=== PATIENT | male | born 1950 | race Caucasian/White ===

== ENCOUNTER 2017-06-25 08:32 | Emergency (ER) | payer BC ==
[2017-06-25 08:58] VITALS: BP 155/87
[2017-06-25] MEDS ORDERED: Aspirin Low Dose CHEW TAB* 81 MG PO ONE (09:54)
--- NOTE | 2017-06-25 11:32 | UC ---
Josephine Cavazos Nilda, scribed for Charito De Santiago DO on 06/25/17 at 0916 . Abdominal Pain Male HPI - HPI Summary HPI Summary: This patient is a 67 year old M presenting to [facility] accompanied by with a chief complaint of constant severe non-radiating upper epigastric cramping since 02:30 this morning. The patient rates the initial pain 10/10 in severity and current pain 4/10. Symptoms aggravated by nothing and possibly alleviated by flatulence. Patient reports belching, reduced PO intake (a few sips of nael juan), and diaphoresis when pain was severe. Patient denies vomiting, body aches, fever, chills, SOB, rash, CP, pain in neck, jaw, and arm, and ear pain. He states last BM was yesterday morning and has not had BM yet today. Pt notes he took oxycodone for chronic back pain yesterday which has tendency to constipate him. He admits about 15-20 ETOH drinks per week, but states he can have a period of up to 4-5 days of no drinking and does not experience withdrawal symptoms. - History of Current Complaint Chief Complaint: UCAbdominalPain Stated Complaint: ABDOMINAL PAIN Time Seen by Provider: 06/25/17 08:57 Hx Obtained From: Patient Onset/Duration: Sudden Onset, Lasting Hours, Still Present Timing: Constant Severity Initially: Severe Severity Currently: Moderate Pain Intensity: 4 Pain Scale Used: 0-10 Numeric Location: Epigastric Radiates: No Character: Aching Aggravating Factor(s): Nothing Alleviating Factor(s): Other - flatulence Associated Signs And Symptoms: Positive: Other - belching, reduced PO intake (a few sips of nael juan), and diaphoresis. Patient denies vomiting, body aches, fever, chills, SOB, rash, CP, pain in neck, jaw, and arm, and ear pain. - Allergies/Home Medications Allergies/Adverse Reactions: Allergies Allergy/AdvReac Type Severity Reaction Status Date / Time No Known Allergies Allergy Verified 06/25/17 08:48 PMH/Surg Hx/FS Hx/Imm Hx Cardiovascular History: Hypertension - Surgical History Surgical History: Yes Surgery Procedure, Year, and Place: left knee surgery- TOTAL REPLACEMENT;. right ACL reconstruction. L5-S1 Laminectomy -2007. right total knee replacement 2017 - Family History Known Family History: Positive: Cardiac Disease, Hypertension - Social History Lives: With Family Alcohol Use: Weekly Alcohol Amount: 15-20 drinks per week Substance Use Type: None Substance Use Comment - Amount & Last Used: oxycodone Smoking Status (MU): Current Some Day Smoker Type: Cigars Amount Used/How Often: 1 per day Have You Smoked in the Last Year: Yes When Did the Patient Quit Smoking/Using Tobacco: 20 years ago Household Exposure Type: Cigarettes Cessation Counseling: Patient Advised to Stop Review of Systems Constitutional: Other - negative fever, chills Skin: Other - diaphoresis; negative rash ENT: Other - negative ear pain Respiratory: Other - negative SOB Cardiovascular: Other - negative CP Gastrointestinal: Abdominal Pain - epigastric, Other - belching, reduced PO intake; negative vomiting Musculoskeletal: Other: - negative body ache, pain in neck, jaw, and arm All Other Systems Reviewed And Are Negative: Yes Physical Exam Triage Information Reviewed: Yes Appearance: Well-Appearing, No Pain Distress, Well-Nourished Vital Signs: Initial Vital Signs Temp 97.3 F 06/25/17 08:49 Pulse 54 06/25/17 08:49 Resp 16 06/25/17 08:49 BP 155/87 06/25/17 08:49 Pulse Ox 96 06/25/17 08:49 Vital Signs Reviewed: Yes Eyes: Positive: Conjunctiva Clear. Negative: Discharge ENT: Positive: Hearing grossly normal. Negative: Muffled voice, Hoarse voice Neck exam: Normal Neck: Positive: Supple Respiratory: Positive: Lungs clear, Normal breath sounds, No respiratory distress, No accessory muscle use Cardiovascular: Positive: RRR, No Murmur Abdomen Description: Positive: Soft, Other: - Mildly tender in epigastric area, somewhat obese, mild umbilical hernia evident. Negative: Distended, Guarding Bowel Sounds: Positive: Present Musculoskeletal Exam: Normal Neurological: Positive: Alert, Muscle Tone Normal Psychological: Positive: Age Appropriate Behavior Skin Exam: Normal Skin: Positive: Other - Warm, Dry, Normal color Diagnostics - EKG Cardiac Rate: Bradycardia Cardiac Rhythm: Sinus: Normal - [address] Segment: Normal Re-Evaluation - Re-Evaluation First Eval Re-Evaluation Time: 09:54 Comment: Reviewed EKG and plan to transfer to ED. Pt is agreeable to transfer. Abd Pain Male Course/Dx - Course Course Of Treatment: This patient is a 67 year old M presenting to [facility] by with a chief complaint of constant severe non-radiating upper epigastric cramping since 02:30 this morning. The patient rates the initial pain 10/10 in severity and current pain 4/10. Symptoms aggravated by nothing and alleviated by flatulence. Patient reports belching, reduced PO intake (a few sips of nael juan), and diaphoresis. Patient denies vomiting, body aches, fever, chills, SOB, rash, CP, pain in neck, jaw, and arm, and ear pain. He states last BM was yesterday morning and has not had BM yet today. Pt notes he took oxycodone for chronic back pain yesterday which has tendency to constipate him. He admits about 15 ETOH drinks per week, but states he can have a period of up to 4-5 days of no drinking and does not experience withdrawal symptoms. An EKG reveals sinus bradycardia, 47 bpm, and no ST changes. Patient will be transferred to [facility] for further evaluation with Dx of epigastric pain and bradycardia. The patient is agreeable with this plan. Medications reviewed. Allergies reviewed. High blood pressure noted. - Differential Dx/Clinical Impression Differential Diagnosis/HQI/PQRI: ACS, AMI, Constipation, Pancreatitis Provider Diagnoses: epigastric pain, bradycardia Discharge - Discharge Plan Condition: Stable Disposition: [facility] Discharge Disposition Comment: [facility] Referrals: Dav Bolaños MD [Primary Care Provider] - The documentation as recorded by the Josephine barros Nilda accurately reflects the service I personally performed and the decisions made by , Charito De Santiago DO.
== END 2017-06-25 10:21 | disposition short-term general hospital (02) ==
LOC: UCEAST 08:32
DX: R10.13 Epigastric pain (principal); R00.1 Bradycardia, unspecified; I10 Essential (primary) hypertension; R61 Generalized hyperhidrosis; Z96.653 Presence of artificial knee joint, bilateral; Z71.6 Tobacco abuse counseling; F17.290 Nicotine dependence, other tobacco product, uncomplicated
CPT/HCPCS: 93005; 99213; A9270-GY; G0463

== ENCOUNTER 2017-06-25 10:39 | Emergency (ER) | payer BC ==
[2017-06-25 11:32] LABS: Urine Appearance Clear; Urine Blood Negative (Negative); Urine Color Yellow; Urine Ketones Negative (Negative); Urine Protein Negative (Negative); Urine Urobilinogen Negative (Negative)
[2017-06-25 11:41] LABS: ABS Basophils 0.1 10^3/ul (0-0.2); ABS Eosinophils 0.1 10^3/ul (0-0.6); ABS Lymphocytes 1.7 10^3/ul (1.0-4.8); ABS Monocytes 0.7 10^3/ul (0-0.8); ABS Neutrophils 7.6 10^3/ul (1.5-7.7); ABS Nucleated RBC 0 10^3/ul; Eosinophil % 1.4 % (0-6); Hematocrit 44 % (42-52); Hemoglobin 15.2 g/dl (14.0-18.0); Lymphocyte % 16.3 % (25-47); Mean Corpuscular HGB Conc 35 g/dl (31-36); Mean Corpuscular Hemoglobin 32 pg (27-31); Mean Corpuscular Volume 93 fL (80-94); Mean Platelet Volume 7 um3 (7.4-10.4); Nucleated Red Blood Cells % 0; Platelet Count 185 10^3/ul (150-450); Red Blood Count 4.72 10^6/ul (4.0-5.4); Red Cell Distribution Width 14 % (10.5-15); White Blood Count 10.2 10^3/ul (3.5-10.8)
--- NOTE | 2017-06-25 11:43 | RAD ---
Indication: Epigastric pain. Comparison: September 09, 2014 lumbar spine MRI. Technique: Supine and upright views of the abdomen. Report: No radiographic evidence for free air. Unremarkable bowel gas pattern. Large volume of stool in the RIGHT colon. Negative for significant rectal distention with stool. Negative for dilated bowel loops or suspicious bowel air-fluid levels. Negative for suspicious calcifications or mass effect. Advanced degenerative spondylosis with large RIGHT L1-L2 and LEFT L2-L3 lateral osteophytes without significant interval change. IMPRESSION: No acute abdominal pelvic pathologic process evident.
[2017-06-25 11:56] LABS: EGFR Non-African American 101.4 (>60)
--- NOTE | 2017-06-25 12:46 | RAD ---
Indication: Abdominal pain. Comparison: Abdomen radiograph the same date. Technique: RIGHT upper quadrant ultrasound. Report: Appropriate direction flow documented in the portal and hepatic veins. 17.5 cm liver is increased in echogenicity consistent with fatty infiltration with focal sparing at the gallbladder fossa. Negative for suspicious focal hepatic lesions. The common bile duct could not be visualized due to bowel gas. Adequately distended gallbladder is remarkable for biliary sludge and small dependent stones. Normal 2.8 mm gallbladder wall thickness. Negative for pericholecystic fluid. Negative for sonographic Ravi's sign. The pancreas is largely obscured due to bowel gas with the visualized pancreas echogenic consistent with partial fatty replacement. Negative for ascites. 11.7 cm RIGHT kidney is unremarkable. IMPRESSION: 1. Hepatic steatosis. 2. The common bile duct could not be visualized with bowel gas limiting acoustic window. Negative for intrahepatic biliary dilatation. 3. Cholelithiasis and biliary sludge without secondary findings to favor acute cholecystitis.
[2017-06-25 13:21] VITALS: BP 109/62
--- NOTE | 2017-06-25 18:31 | ED ---
Emelina Cavazos Thomas, scribed for Lorenzo Benoit MD on 06/25/17 at 1058 . Abdominal Pain/Male - HPI Summary HPI Summary: The patient is a 67 year old male presenting with upper abdominal pain (RUQ>LUQ ) that woke him up this morning at approximately 03:00. He had nausea but no vomiting. The pain subsided after he passed gas, and he fell back asleep. However, he had excruciating pain after waiting up again. This pain was 8/10. He presented to urgent care, at which his pain decreased. Now his pain is a dull constant 2/10 with no radiation. Nothing makes the pain better or worse. - History of Current Complaint Chief Complaint: EDAbdPain Stated Complaint: ABD PAIN-SENT FROM [facility] Time Seen by Provider: 06/25/17 10:41 Hx Obtained From: Patient Onset/Duration: Still Present Timing: Constant, Lasting Hours - onset this AM at 03:00 Severity Initially: Severe Severity Currently: Mild Pain Intensity: 2 Pain Scale Used: 0-10 Numeric Location: Discrete At: RUQ, Discrete At: LUQ Radiates: No Character: Dull Aggravating Factor(s): Nothing Alleviating Factor(s): Nothing Associated Signs And Symptoms: Positive: Nausea. Negative: Vomiting - Allergies/Home Medications Allergies/Adverse Reactions: Allergies Allergy/AdvReac Type Severity Reaction Status Date / Time No Known Allergies Allergy Verified 06/25/17 08:48 Home Medications: Home Medications Aspirin EC Low Dose* [Ecotrin EC Low Dose 81 MG*] 81 mg PO DAILY 06/25/17 [ History Confirmed 06/25/17] Bisoprolol/Hydrochlorothiazide [Ziac 5-6.25 mg-] 1 tab PO DAILY 06/25/17 [ History Confirmed 06/25/17] Oxycodone TAB(NF) [Oxycodone HCl 10 MG] 10 mg PO Q6H PRN 06/25/17 [History Confirmed 06/25/17] PMH/Surg Hx/FS Hx/Imm Hx Endocrine/Hematology History: Denies: Hx Diabetes, Hx Thyroid Disease Cardiovascular History: Reports: Hx Hypertension Denies: Hx Pacemaker/ICD Respiratory History: Denies: Hx Asthma, Hx Chronic Obstructive Pulmonary Disease (COPD) GI History: Denies: Hx Ulcer History: Denies: Hx Renal Disease Musculoskeletal History: Reports: Hx Back Problems - chronic neck and back pain Sensory History: Reports: Hx Contacts or Glasses Denies: Hx Hearing Aid Opthamlomology History: Reports: Hx Contacts or Glasses Neurological History: Reports: Other Neuro Impairments/Disorders - pain clinic pt Psychiatric History: Denies: Hx Panic Disorder - Surgical History Surgery Procedure, Year, and Place: left knee surgery- TOTAL REPLACEMENT;. right ACL reconstruction. L5-S1 Laminectomy -2007. right total knee replacement 2017 Infectious Disease History: No Infectious Disease History: Denies: Hx Hepatitis, Hx Human Immunodeficiency Virus (HIV), Traveled Outside the [place] in Last 30 Days - Family History Known Family History: Positive: Other - Patient denies relevant FHx - Social History Alcohol Use: Weekly Alcohol Amount: 15-20 drinks per week Substance Use Type: Reports: None Substance Use Comment - Amount & Last Used: oxycodone Smoking Status (MU): Current Some Day Smoker Type: Cigars Amount Used/How Often: 1 per day Have You Smoked in the Last Year: Yes Review of Systems Negative: Fever Positive: Abdominal Pain, Nausea. Negative: Vomiting All Other Systems Reviewed And Are Negative: Yes Physical Exam - Summary Physical Exam Summary: VITAL SIGNS: Reviewed. GENERAL: Patient is a well-developed and nourished female who is lying comfortable in the stretcher.Patient is not in any acute respiratory distress. HEAD AND FACE: Normocephalic and atraumatic. EYES: PERRLA, EOMI x 2, No injected conjunctiva. EARS: Hearing grossly intact. Ear canals and tympanic membranes are WNL. MOUTH: Oropharynx within normal limits. NECK: Supple, trachea is midline, no adenopathy, no JVD. CHEST: Symmetric, no tenderness at palpation LUNGS: Clear to auscultation bilaterally. No wheezing or crackles. CVS: RRR, S1 and S2 present, no murmurs or gallops appreciated. ABDOMEN: Soft. She has epigastric and RUQ tenderness. No signs of distention. Positive bowel sounds. No rebound no guarding, and no masses palpated. No abdominal bruit or pulsations. EXTREMITIES: FROM in all major joints, no edema, no cyanosis or clubbing. NEURO: Alert and oriented x 3. No acute neurological deficits. Speech is normal. SKIN: Dry and warm Triage Information Reviewed: Yes Vital Signs On Initial Exam: Initial Vitals Temp Pulse Resp BP Pulse Ox 98.6 F 50 18 133/72 98 06/25/17 10:40 06/25/17 10:40 06/25/17 10:40 06/25/17 10:40 06/25/17 10:40 Vital Signs Reviewed: Yes Diagnostics - Vital Signs Vital Signs Temp Pulse Resp BP Pulse Ox 06/25/17 10:40 98.6 F 50 18 133/72 98 - Laboratory Lab Results: Lab Results 06/25/17 06/25/17 06/25/17 Range/Units 11:15 11:33 11:33 WBC 10.2 (3.5-10.8) 10^3/ul RBC 4.72 (4.0-5.4) 10^6/ul Hgb 15.2 (14.0-18.0) g/dl Hct 44 (42-52) % MCV 93 (80-94) fL MCH 32 H (27-31) pg MCHC 35 (31-36) g/dl RDW 14 (10.5-15) % Plt Count 185 (150-450) 10^3/ul MPV 7 L (7.4-10.4) um3 Neut % (Auto) 74.8 (38-83) % Lymph % (Auto) 16.3 L (25-47) % [place] % (Auto) 6.8 (1-9) % Eos % (Auto) 1.4 (0-6) % Baso % (Auto) 0.7 (0-2) % Absolute Neuts (auto) 7.6 (1.5-7.7) 10^3/ul Absolute Lymphs (auto) 1.7 (1.0-4.8) 10^3/ul Absolute Monos (auto) 0.7 (0-0.8) 10^3/ul Absolute Eos (auto) 0.1 (0-0.6) 10^3/ul Absolute Basos (auto) 0.1 (0-0.2) 10^3/ul Absolute Nucleated RBC 0 10^3/ul Nucleated RBC % 0 Sodium 138 (133-145) mmol/L Potassium 4.2 (3.5-5.0) mmol/L Chloride 105 (101-111) mmol/L Carbon Dioxide 27 (22-32) mmol/L Anion Gap 6 (2-11) mmol/L BUN 16 (6-24) mg/dL Creatinine 0.77 (0.67-1.17) mg/dL Est GFR ( Amer) 130.4 (>60) Est GFR (Non-Af Amer) 101.4 (>60) BUN/Creatinine Ratio 20.8 H (8-20) Glucose 108 H (70-100) mg/dL Lactic Acid (0.5-2.0) mmol/L Calcium 9.8 (8.6-10.3) mg/dL Total Bilirubin 0.90 (0.2-1.0) mg/dL AST 23 (13-39) U/L ALT 24 (7-52) U/L Alkaline Phosphatase 58 (34-104) U/L Troponin I 0.00 (<0.04) ng/mL C-Reactive Protein 9.42 H (< 5.00) mg/L B-Natriuretic Peptide ( - 100) pg/mL Total Protein 7.1 (6.4-8.9) g/dL Albumin 4.3 (3.2-5.2) g/dL Globulin 2.8 (2-4) g/dL Albumin/Globulin Ratio 1.5 (1-3) Lipase 30 (11.0-82.0) U/L Urine Color Yellow Urine Appearance Clear Urine pH 5.0 (5-9) Ur Specific [place] 1.020 (1.010-1.030) Urine Protein Negative (Negative) Urine Ketones Negative (Negative) Urine Blood Negative (Negative) Urine Nitrate Negative (Negative) Urine Bilirubin Negative (Negative) Urine Urobilinogen Negative (Negative) Ur Leukocyte Esterase Negative (Negative) Urine Glucose Negative (Negative) 06/25/17 06/25/17 Range/Units 11:33 11:33 WBC (3.5-10.8) 10^3/ul RBC (4.0-5.4) 10^6/ul Hgb (14.0-18.0) g/dl Hct (42-52) % MCV (80-94) fL MCH (27-31) pg MCHC (31-36) g/dl RDW (10.5-15) % Plt Count (150-450) 10^3/ul MPV (7.4-10.4) um3 Neut % (Auto) (38-83) % Lymph % (Auto) (25-47) % [place] % (Auto) (1-9) % Eos % (Auto) (0-6) % Baso % (Auto) (0-2) % Absolute Neuts (auto) (1.5-7.7) 10^3/ul Absolute Lymphs (auto) (1.0-4.8) 10^3/ul Absolute Monos (auto) (0-0.8) 10^3/ul Absolute Eos (auto) (0-0.6) 10^3/ul Absolute Basos (auto) (0-0.2) 10^3/ul Absolute Nucleated RBC 10^3/ul Nucleated RBC % Sodium (133-145) mmol/L Potassium (3.5-5.0) mmol/L Chloride (101-111) mmol/L Carbon Dioxide (22-32) mmol/L Anion Gap (2-11) mmol/L BUN (6-24) mg/dL Creatinine (0.67-1.17) mg/dL Est GFR ( Amer) (>60) Est GFR (Non-Af Amer) (>60) BUN/Creatinine Ratio (8-20) Glucose (70-100) mg/dL Lactic Acid 0.9 (0.5-2.0) mmol/L Calcium (8.6-10.3) mg/dL Total Bilirubin (0.2-1.0) mg/dL AST (13-39) U/L ALT (7-52) U/L Alkaline Phosphatase (34-104) U/L Troponin I (<0.04) ng/mL C-Reactive Protein (< 5.00) mg/L B-Natriuretic Peptide 61 ( - 100) pg/mL Total Protein (6.4-8.9) g/dL Albumin (3.2-5.2) g/dL Globulin (2-4) g/dL Albumin/Globulin Ratio (1-3) Lipase (11.0-82.0) U/L Urine Color Urine Appearance Urine pH (5-9) Ur Specific [place] (1.010-1.030) Urine Protein (Negative) Urine Ketones (Negative) Urine Blood (Negative) Urine Nitrate (Negative) Urine Bilirubin (Negative) Urine Urobilinogen (Negative) Ur Leukocyte Esterase (Negative) Urine Glucose (Negative) Result Diagrams: 06/25/17 11:33 02/10/18 11:33 Lab Statement: Any lab studies that have been ordered have been reviewed, and results considered in the medical decision making process. - Radiology XR Abdomen Xray Interpretation: No Acute Changes - No acute abdominal pelvic pathologic process evident. Dr. Benoit has reviewed this report. Radiology Interpretation Completed By: Radiologist - EKG 11:00 Cardiac Rate: Bradycardia EKG Rhythm: Sinus Bradycardia - at 44 BPM EKG Interpretation: No ST elevations. - Additional Comments Diagnostic Additional Comments: Ultrasound gallbladder. Interpreted by radiologist. Impression: 1. Hepatic steatosis. 2. The common bile duct could not be visualized with bowel gas limiting acoustic window. Negative for intrahepatic biliary dilatation. 3. Cholelithiasis and biliary sludge without secondary findings to favor acute cholecystitis. Dr. Benoit has reviewed this report. Abdominal Pain Fem Course/Dx - Course Assessment/Plan: The patient is a 67 year old male presenting with upper abdominal pain (RUQ>LUQ) that woke him up this morning at approximately 03:00. He had nausea but no vomiting. The pain subsided after he passed gas, and he fell back asleep. However, he had excruciating pain after waiting up again. This pain was 8/10. He presented to urgent care, at which his pain decreased. Now his pain is a dull constant 2/10 with no radiation. Nothing makes the pain better or worse. Test results are without significant ab normality except CRP 9.5. Urinalysis was negative for UTI. XR abdomen shows no acute abdominal pelvic pathology process evident. Ultrasound of the gallbladder shows 1. Hepatic steatosis. 2. The common bile duct could not be visualized with bowel gas limiting acoustic window. Negative for intrahepatic biliary dilatation. 3. Cholelithiasis and biliary sludge without secondary findings to favor acute. cholecystitis. At this point, I do not believe that the patient is having an acute cholecystitis, just cholelithiasis. Therefore, the patient was given dietary instructions, pain medication, and will follow up with surgery. The patient is feeling better and is asymptomatic at this time, therefore the patient will be discharged with surgery follow up. - Diagnoses Differential Diagnosis/HQI/PQRI: Gall Bladder Disease, Hepatitis, Pancreatitis Provider Diagnoses: Cholelithiasis Discharge - Discharge Plan Condition: Stable Disposition: HOME Prescriptions: HYDROcodone/ACETAMIN 5-325 MG* [Post 5-325 TAB*] 1 tab PO Q6H PRN #12 tab MDD 4 PRN Reason: Pain Patient Education Materials: Gallstones (ED) Referrals: Jeet Sterling MD [Medical Doctor] - 3 Days Additional Instructions: Follow up with Dr. Sterling, surgery, in three days. Return to the emergency department for any new or worsening symptoms. The documentation as recorded by the Emelina barros Thomas accurately reflects the service I personally performed and the decisions made by , Lorenzo Benoit MD.
== END 2017-06-25 13:19 | disposition home or self-care (01) ==
LOC: ED 10:39
DX: K80.21 Calculus of gallbladder without cholecystitis with obstruction (principal); R10.11 Right upper quadrant pain; K83.1 Obstruction of bile duct; Z86.79 Personal history of other diseases of the circulatory system; G89.4 Chronic pain syndrome; Z72.0 Tobacco use; R11.0 Nausea
CPT/HCPCS: 36415; 74019; 76705; 80053; 81003; 83605; 83690; 83880; 84484; 85025; 86140; 93005; 99283

== ENCOUNTER → 2017-07-13 14:02 | Day surgery (SDC) | payer BC ==
--- NOTE | 2017-06-29 21:21 | HP ---
CC: Dav Bolaños MD, [facility] * ADMISSION HISTORY AND PHYSICAL: DATE OF ADMISSION/SURGERY: 07/13/17 ATTENDING SURGEON: Jeet Sterling MD * (DANYEL Beard, dictating). CHIEF COMPLAINT: Symptomatic cholelithiasis. HISTORY OF PRESENT ILLNESS: This is a 67-year-old hypertensive male with chronic low back pain who was awakened in the rehab consultant hours on 06/25/17 with epigastric and right upper quadrant abdominal pain. This was following a meal the evening before including chili mac with sausage and ice cream. He describes the pain as gas-like with associated sweats, but no nausea or vomiting. He felt that he could not get comfortable, though he eventually was able to get back to sleep for a bit with pain persisting upon awakening. He presented to [facility] and was transferred [place] [facility] [place] Workup at that time included a white blood cell count of 10,200, normal hemoglobin, normal liver function tests and lipase, normal lactic acid and urinalysis. CRP mildly elevated at 9.4. An ultrasound did show fatty liver changes as well as gallstones with sludge. There was no biliary ductal dilatation. The gallbladder wall was measured at 2.8 mm. There was no pericholecystic fluid. His symptoms had subsided sufficiently to permit discharge. He was then seen in the office by Dr. Sterling on 06/27/17 and has been symptom free since then. He specifically denies any dark urine associated with the attack. He has not had any prior similar attacks. Dr. Sterling reviewed his history and workup. He has recommended laparoscopic cholecystectomy. The patient understands the indications, risks, benefits, and alternatives as well as the expected perioperative course. He would like to proceed as scheduled with laparoscopic cholecystectomy. PAST MEDICAL HISTORY: Hypertension, obesity, chronic low back pain (secondary to disk herniation as well as arthritic changes) (he did sustain a pelvic fracture at age 19). PAST SURGICAL HISTORY: Bilateral total knee replacements, the most recent being on the right in 2017 done at the [facility]. He is status post laminectomy for an L5-S1 disk in 2007. He is status post right ACL repair and right inguinal herniorrhaphy as a child. CURRENT MEDICATIONS: 1. Aspirin 81 mg once daily (he will hold for 5 days preoperatively). 2. Bisoprolol/hydrochlorothiazide 5/6.25 once daily. 3. Oxycodone 10 mg q.6 hours p.r.n. pain (he uses at most 2 tablets per day and many days none at all). DRUG ALLERGIES: None known. FAMILY HISTORY: Negative for gallbladder disease and also negative for anesthesia problems, bleeding or clotting disorders. SOCIAL HISTORY: The patient is . 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 He remains fairly active. He is a former smoker of approximately [id number] history of cigarettes, his last cigarette being about a year ago. He continues to smoke approximately 3 to 4 cigars per week. He is advised to quit. He drinks between 15 and 20 drinks per week. He denies any other recreational drug use. REVIEW OF SYSTEMS: General: No recent constitutional symptoms other than described in the HPI. His weight overall has been stable. Cardiovascular: No chest pain, palpitations or history of heart murmur. He is treated for hypertension. He does have a typical resting heart rate of around 60. Respiratory: No history of asthma, chronic cough, or shortness of breath. GI: Colonoscopy performed within the past 2 to 3 years and normal by his report. No other GI symptoms noted other than the HPI. : No problems reported. Endocrine: No diabetes or thyroid dysfunction. PHYSICAL EXAMINATION GENERAL: Well-nourished, somewhat obese male, in no acute distress. VITAL SIGNS: Height 6 feet 1 inch, weight 245 pounds. Other vital signs per nursing. HEENT: Pupils equal, round, and reactive. EOMs intact. No conjunctival pallor or scleral icterus. Oropharynx; teeth in good repair. No intraoral lesions. NECK: No lymphadenopathy, thyromegaly, or masses. LUNGS: Clear to auscultation. No rales or wheezes. HEART: Regular rate and rhythm. No murmur noted. ABDOMEN: Obese, soft, nontender to palpation. No palpable masses or organomegaly. Negative Ravi sign. Per the patient, no inguinal hernias by Dr. Sterling's exam. GENITALIA: Otherwise not examined. RECTAL: Not done. BACK: No spinous process or CVA tenderness. EXTREMITIES: No edema. NEUROLOGICAL: Grossly intact. SKIN: Warm and dry. No suspicious rashes or lesions. IMPRESSION: Symptomatic cholelithiasis. PLAN: Laparoscopic cholecystectomy. DANYEL BEARD [id number]/[facility] #: [id number]
[~2017-07-13 14:02] MED LIST: Acetaminophen TAB* 325 MG PO PRN; Buffered Lidocaine 0.9% SYRIN* 5 ML/SYR SYRINGE INTRADERM ONE; Buffered Lidocaine 0.9% SYRIN* 5 ML/SYR SYRINGE ONE; Bupivacaine 0.25% SDV* 30 ML ONE; Dexamethasone IV* 4 MG/ML 1 ML (4 MG) ONE; DiMENhydriNATE IV* 50 MG/ML VIAL IV PUSH PRN; Famotidine IV* 10 MG/ML 2 ML (20 mg) IV ONE; Famotidine IV* 10 MG/ML 2 ML (20 mg) ONE; Glycopyrrolate IV* 0.2 MG/ML 1 ML VIAL ONE; Ketorolac INJ* 30 MG/ML 1 ML VIAL ONE; Lidocaine 2% PF * 5 ML VIAL ONE; Midazolam* 1 MG/ML 5 ML VIAL (5 MG) ONE; Morphine INJ* 10 MG/ML 1 ML CARPUJECT ONE; Naloxone* 0.4 MG/ML 1 ML VIAL IV PRN; Ondansetron INJ* 2 MG/ML VIAL ONE; PROCHLORPERAZINE INJ 5 MG/ML 2 ML VIAL IV PRN; Propofol* 10 MG/ML 20 ML BTL IV PUSH ONE; Scopolamine 1.5 mg* PATCH TRANSDERM PRN; Scopolamine PATCH Remove* 1 NOTE MISC PATCH OFF ONE; ceFAZolin 2 GM in 100 MLS NS (*) BAG IVPB ONE; fentaNYL* 50 MCG/ML 2 ML VIAL (100 MCG VIAL) ONE; fentaNYL* 50 MCG/ML 5 ML VIAL (250 MCG VIAL) ONE; hydrALAZINE IV* 20 MG/ML VIAL ONE; oxyCODONE TAB* 5 MG TAB ONE; oxyCODONE TAB* 5 MG TAB PO PRN
--- NOTE | 2017-07-13 17:30 | OP ---
Operative Report - Blank - Operative Report Date of Operation: 07/13/17 Note: Preop Dx: symptomatic cholelithiasis Postop Dx: same Procedure: laparoscopic cholecystectomy Anesthesia: GET Surgeon: Asher Asst: DANYEL Felix; LUCIANA Tolbert Fluids: 2 L RL EBL: 100 ml Drains: none Specimen: gallbladder Findings: dictated
[2017-07-13] MEDS: Morphine INJ* 2 MG/ML 1 ML CARPUJECT IV PRN ×5 (17:37→18:46)
[2017-07-13] MEDS: fentaNYL* 50 MCG/ML 2 ML VIAL (100 MCG VIAL) IV PRN ×5 (18:28→18:41)
[2017-07-13 19:28] VITALS: BP 136/84
--- NOTE | 2017-07-14 15:15 | OP ---
CC: Dr. Dav Bolaños * DATE OF OPERATION: 07/13/17 - [facility] DATE OF : 54 SURGEON: Jeet Sterling MD LIME KILN TENDER: DANYEL Beard ANESTHESIOLOGIST: Dr. Vasquez. ANESTHESIA: General anesthesia. PRE-OP DIAGNOSIS: Symptomatic cholelithiasis. POST-OP DIAGNOSIS: Chronic cholecystitis. OPERATIVE PROCEDURE: Laparoscopic cholecystectomy. ESTIMATED BLOOD LOSS: 100 cc. IV FLUIDS: 2 L of crystalloid. SPECIMEN: Gallbladder with contents. DRAINS: None. DESCRIPTION OF PROCEDURE: The patient was identified in the preoperative area, marked and consent was signed. He was taken to the operating room and placed on the operating table in supine position. Preoperative antibiotics were given. Sequential devices were placed on bilateral lower extremities. General anesthesia was induced. The patient's abdomen was prepped and draped in standard surgical fashion. A time-out was performed. Folds of the umbilicus were elevated anteriorly and a Veress needle was inserted into the abdominal cavity, which was then allowed to insufflate to a pressure of 15 mmHg. Patient tolerated the insufflation well. A periumbilical incision was made and a 5-mm trocar was inserted. Laparoscope was inserted through this and a Veress needle was removed under direct vision. Review of the abdomen showed a bulky liver with fatty replacement, but no discrete lesions. The omentum was adhered to the edge of the liver obscuring the gallbladder. A 12-mm trocar was then inserted into the subxiphoid area and prior to the additional trocars placed, we sharply lysed adhesions to the colon to the lateral abdominal wall with scissors. Next, two additional 5-mm trocars were placed in the right subcostal area. We were able to sharply dissect the omentum off of the edge of the liver. This was done with electrocautery and also a blunt dissection until we could expose the fundus of the gallbladder. We slowly removed the omentum that was adhered to the gallbladder until we could see the infundibulum of the gallbladder. There was some oozing at the omentum. Next, with the infundibulum grasped and retracted to his right lower quadrant, we looked for a Calot's triangle. This was obscured given patient's body habitus. At this point, we punctured the fundus of the gallbladder and a significant amount of thick black bile was removed. This was suctioned off and we held at this site to prevent any significant leakage of stones; however, there were some stones spilled at this point. Blunt dissection was carried out on the lateral portion of the gallbladder to expose this wall better. We used electro-cautery to take the peritoneum off the lateral wall. Next, what appeared to be the cystic duct was isolated. It did not clip this yet. We did isolate the cystic artery. We double clipped this and ligated it and then both blunt and sharp dissection was carried out to get around the full gallbladder and extend the dissection to remove the gallbladder from the liver bed. Once this was performed, we could see that there was only one structure extending into this gallbladder. We did then triply clipped this and ligated. We removed the gallbladder from the liver bed. We did spill additional small stones during this dissection and then the liver was placed in an endoscopic retrieval bag which was brought out through the subxiphoid port. Next, we placed a 4 x 8 gauze in at the edge of the dissection site where there was some oozing at the liver bed. We applied pressure to this while we cleaned up stones. These were removed with 3 modalities, both the stone forceps, the 5- mm suction sport psychologist and the 10-mm suction sport psychologist. We did this very definitively to remove any debris that we had seen looking under the liver and also above. Liver was large and it was difficult to move around given its size, but I felt confident that we got much of not all of the stones debris. Next, the gauze was removed. There was no significant oozing at that site, but we did use cautery to achieve hemostasis. We reviewed the cystic duct stump and cystic artery stump and the clips were intact. There was no bile or bleeding. Next, we looked at the omentum. There was some oozing along the area of the omentum from the initial dissection, but this did not appear significant and I left this be. The patient was placed back into a neutral position. The abdomen was allowed to collapse. Trocars were removed under direct vision and all 4 skin incisions were reapproximated with 4-0 Monocryl subcuticular sutures followed by Steri-Strips and sterile dressing. The patient tolerated the procedure well, was woken up in the OR, and transferred to the PACU in stable condition. [id number]/CPS #: [id number] [facility] MED[facility] CENTERPedro Pablo
== END | disposition home or self-care (01) ==
LOC: OR 14:02
PROVIDERS: ATTEND Surgery
DX: K80.10 Calculus of gallbladder with chronic cholecystitis without obstruction (principal); I10 Essential (primary) hypertension; E66.9 Obesity, unspecified; F17.290 Nicotine dependence, other tobacco product, uncomplicated
CPT/HCPCS: 88304; A9270-GY; J0360; J1100; J1885; J2250; J2270; J2405; J2704; J3010